=== PATIENT | female | born 1990 | race Caucasian/White ===

== ENCOUNTER 2017-08-26 18:07 | Emergency (ER) | payer MEDICAID, SELFPAY ==
--- NOTE | 2017-08-26 18:07 | DT_ITS ---
This patient was seen during an EMR downtime August 21, 2017 - August 28, 2017. This patient may have a combination of paper and electronic documentation or all paper documentation. All documentation is viewable within the e-chart portion of [employer] for each patient visit.
== END 2017-08-26 18:43 | disposition home or self-care (01) ==
LOC: ED 08-27 15:11
PROVIDERS: Emergency Provider Emergency Medicine
DX: H74.8X2 Other specified disorders of left middle ear and mastoid (principal)
CPT/HCPCS: 99282